=== PATIENT | male | born 1940 | race Hispanic/Latino ===

== ENCOUNTER 2018-03-23 11:48 | Inpatient (IN) | payer MEDICARE ==
[2018-03-23 12:02] VITALS: BMI 32.8
--- NOTE | 2018-03-23 12:27 | ED PDOC ---
Arrival/HPI - General Chief Complaint: Abnormal Labs Time Seen by Provider: 03/23/18 11:56 Historian: Patient - History of Present Illness Narrative History of Present Illness (Text): 03/23/18 12:18 Patient is a 77 year old male, with past medical history of hypertension and CAD s/p stent placement and pacemaker, was referred to the Emergency Department by Dr. Young for medical evaluation of possible blood transfusion s/p abnormal lab results today. Patient states visiting his PMD yesterday for a routine check up and was informed of abnormal lab results this morning prompting him to present to the ED for evaluation. Patient informs generalized weakness and fatigue since past 2 months but denies any other somatic complaints. As per son, patient has been acting more tired than his baseline with progressively increasi ngly skin paleness. Patient denies any abdominal pain, stool changes, or urinary symptoms. Denies any chest pain, shortness of breath, neck or back pain. Denies any headache, dizziness/lightheadedness or changes in mental status. Denies any other complaints. PMD: Dr. Young Time/Duration: > month Symptom Onset: Gradual Symptom Course: Unchanged Activities at Onset: Light Context: Other (Referred by PMD) Past Medical History - Provider Review Nursing Documentation Reviewed: Yes - Infectious Disease Hx of Infectious Diseases: None - Cardiac Hx Cardiac Disorders: Yes Hx NV: Yes Hx Hypertension: Yes Hx Pacemaker: Yes - Pulmonary Hx Respiratory Disorders: No - Neurological Hx Neurological Disorder: No - HEENT Hx HEENT Disorder: No - Renal Hx Renal Disorder: No - Endocrine/Metabolic Hx Endocrine Disorders: No - Hematological/Oncological Hx Blood Disorders: No - Integumentary Hx Dermatological Disorder: No - Musculoskeletal/Rheumatological Hx Musculoskeletal Disorders: Yes (radiculapathy) Hx Back Pain: Yes Hx Gout: Yes Hx Herniated Disk: Yes (lumbar) Hx Spinal Stenosis: Yes Hx Unsteady Gait: Yes (uses a cane back pain) - Gastrointestinal Hx Gastrointestinal Disorders: No - Genitourinary/Gynecological Hx Genitourinary Disorders: Yes Hx Prostate Problems: Yes (bph enlarged bw once a yr, slow stream) - Psychiatric Hx Psychophysiologic Disorder: No Hx Substance Use: No - Surgical History Hx Cardiac Catheterization: Yes Hx Coronary Stent: Yes (x 5) Other/Comment: femoral angiogram 8/13/15, cath/ptca x2 with 5 stents 2010 and 2012, left endarterectomy 2002, angiogram 06/08/14, abd wall lipoma - Anesthesia Hx Anesthesia Reactions: No Hx Malignant Hyperthermia: No - Suicidal Assessment Feels Threatened In Home Enviroment: No Family/Social History - Physician Review Nursing Documentation Reviewed: Yes Family/Social History: No Known Family HX Smoking Status: Former Smoker Hx Alcohol Use: Yes (occasional beer) Hx Substance Use: No Hx Substance Use Treatment: No Allergies/Home Meds Allergies/Adverse Reactions: Allergies clopidogrel [From Plavix] Allergy (Verified 03/23/18 14:21) RASH gabapentin Allergy (Verified 03/23/18 14:21) PAIN Sulfa (Sulfonamide Antibiotics) Allergy (Verified 03/23/18 14:21) RASH Home Medications: Home Meds Medication Instructions Recorded Confirmed Aspirin [Aspir 81] 81 mg PO DAILY 10/11/12 03/23/18 oxyCODONE/Acetaminophen [Percocet 1 tab PO Q6 PRN 11/15/13 03/23/18 5/325 mg Tab] Potassium 1 tab PO DAILY 06/06/14 03/23/18 Allopurinol [Zyloprim] 100 mg PO DAILY 03/23/18 03/23/18 Lisinopril 30 mg PO DAILY 03/23/18 03/23/18 Metoprolol Tartrate [Lopressor] 25 mg PO DAILY 03/23/18 03/23/18 Review of Systems - Review of Systems Constitutional: Fatigue. absent: Fevers Eyes: absent: Vision Changes ENT: absent: Sore Throat Respiratory: absent: SOB, Cough Cardiovascular: CORTEZ. absent: Chest Pain, Palpitations, Edema, Calf Pain Gastrointestinal: absent: Abdominal Pain, Stool Changes, Diarrhea, Nausea, Vomiting, Appetite Changes, Hematochezia, Hematemesis Genitourinary Male: absent: Dysuria, Hematuria Musculoskeletal: Arthralgias. absent: Back Pain, Neck Pain Skin: absent: Rash Neurological: absent: Headache, Dizziness, Focal Weakness Endocrine: absent: Polyuria Hemo/Lymphatic: Easy Bleeding. absent: Easy Bruising Psychiatric: absent: Anxiety, Depression Physical Exam - Physical Exam Narrative Physical Exam (Text): 03/23/18 12:28 Head: Atraumatic. Normocephalic. Eyes: PERRL. EOMI. Conjunctivae are pale. Sclera anicteric. ENT: Mucous membranes are moist and intact. Oropharynx is clear and symmetric. Neck: Supple. Full ROM. No JVD. No lymphadenopathy. Cardiovascular: Regular rate. Regular rhythm. Systolic murmur. Distal pulses are 2+ and symmetric. Pulmonary/Chest: No evidence of respiratory distress. Clear to auscultation bilaterally. No wheezing, rales or rhonchi. Abdominal: Soft and non-distended. There is no tenderness. No rebound, guardi ng, or rigidity. No organomegaly. Good bowel sounds. Rectal: external hemorrhoid noted, nontender, stool is brown, HEME NEGATIVE Back: No CVA tenderness. Extremities: No edema. No cyanosis. No clubbing. Skin: Pale skin. Skin is warm and dry. No petechiae. No purpura. Neurological: Alert, awake, and oriented. Motor and sensory exam intact. Psychiatric: Good eye contact. Normal interaction, affect, and behavior. Vital Signs Reviewed: Yes Vital Signs Temp Pulse Resp BP Pulse Ox 03/23/18 12:02 98.0 F 66 18 172/70 H 98 Temperature: Afebrile Blood Pressure: Hypertensive Pulse: Regular Respiratory Rate: Normal Appearance: Positive for: Non-Toxic, Comfortable Pain Distress: None Mental Status: Positive for: Alert and Oriented X 3 Medical Decision Making ED Course and Treatment: 03/23/18 12:29 Impression: 77 year old male presents to the Emergency Department for evaluation of anemia. History supplemented by son at bedside. He reports that patient has been weaker for past several months. On exam, no headache, no focal neuro deficits. Not tachycardic. Not hypotensive. Rectal exam reveals no melena, no gross bleeding. Significant anemia noted. He denies any new medication or blood thinners. No abdominal pain noted. K elevated at 5.4 but no EKG changes. Cr mildly elevated. Will admit to onitored bed, hydrate. Blood transfusion ordered as Hgb 6.1. Consent obtained with patient, risks/benefits reviewed. Patient seen and evaluted by PMD Dr. Silva Young in ED, will admit for transfusion, work up for anemia. Currently no abdominal pain and cv stable in ed. 03/23/18 20:13 CXR reading by radiology noted, follow-up endorsed to admitting physician as patient currently with no chest pain or shortness of breath or hypoxia in ED. - RAD Interpretation Narrative RAD Interpretations (Text): 03/23/18 15:41 Chest X-ray reviewed by radiologist, shows: FINDINGS: LUNGS: No active pulmonary disease. PLEURA: No significant pleural effusion identified, no pneumothorax apparent. CARDIOVASCULAR: No atherosclerotic calcification present Position/ configuration of pacemaker\AICD device: Satisfactory. OSSEOUS STRUCTURES: No significant abnormalities. VISUALIZED UPPER ABDOMEN: Normal. OTHER FINDINGS: Hilar prominence on the right appears to be technical/vascular. Repeat two-view chest may better clarify this observation. IMPRESSION: No active disease. No significant interval change compared to the prior examination(s). Signing Teacher: Radiologist - EKG Interpretation EKG Interpretation (Text): 03/23/18 20:09 EKG at 1219 normal sinus rhythm rate of [address] elevations Interpreted by ED Physician: Yes Type: 12 lead EKG - Scribe Statement The provider has reviewed the documentation as recorded by the Scribe Neyda Park. All medical record entries made by the Scribe were at my direction and personally dictated by me. I have reviewed the chart and agree that the record accurately reflects my personal performance of the history, physical exam, medical decision making, and the department course for this patient. I have also personally directed, reviewed, and agree with the discharge instructions and disposition. Disposition/Present on Arrival - Present on Arrival Any Indicators Present on Arrival: No History of DVT/PE: No History of Uncontrolled Diabetes: No Urinary Catheter: No History of Decub. Ulcer: No History Surgical Site Infection Following: None - Disposition Have Diagnosis and Disposition been Completed?: Yes Diagnosis: Anemia, Renal insufficiency Disposition: HOSPITALIZED Disposition Time: 13:40 Patient Plan: Admission Patient Problems: Current Active Problems Problem Status Onset Anemia Acute Renal insufficiency Acute Condition: SERIOUS
[2018-03-23 13:30] LABS: BASO # 0.03 K/mm3 (0.0-2.0); BASO % 0.3 % (0.0-3.0); EOS # 0.2 (0.0-0.7); EOS % 2.2 % (1.5-5.0); GRAN # 7.56 (1.4-6.5); GRAN % 77.6 % (50.0-68.0); LYMPH # 1.1 (1.2-3.4); LYMPH % 11.5 % (22.0-35.0); MEAN CELL VOLUME 77.9 fl (80.0-105.0); MEAN CORPUSCULAR HEMOGLOBIN 22.5 pg (25.0-35.0); MEAN CORPUSCULAR HGB CONC 28.9 g/dl (31.0-37.0); MONO # 0.8 (0.1-0.6); MONO % 8.4 % (1.0-6.0); RBC 2.71 10^6/uL (3.5-6.1); RED CELL DISTRIBUTION WIDTH 17.7 % (11.5-14.5); WHITE BLOOD COUNT 9.7 10^3/ul (4.5-11.0)
[2018-03-23 13:33] LABS: INR 1.09; PARTIAL THROMBOPLASTIN TIME 23.4 Seconds (25.1-36.5); PROTHROMBIN TIME 12.5 SECONDS (9.4-12.5)
[2018-03-23 13:35] LABS: ALB/GLOB RATIO 1.3 (1.1-1.8); ALBUMIN 3.8 g/dL (3.0-4.8); ALT/SGPT 16 U/L (7-56); AST/SGOT 25 U/L (17-59); BLOOD UREA NITROGEN 36 mg/dL (7-21); CALCIUM 9.3 mg/dL (8.4-10.5); GFR NON-AFRICAN AMERICAN 37; HEMOGLOBIN 6.1 g/dL (14.0-18.0)
[2018-03-23 13:46] LABS: B-TYPE NATRIURETIC PEPTIDE 109 pg/mL (0-450); TROPONIN I < 0.01 ng/mL
[2018-03-23 13:54] LABS: IRON 24 ug/dL (45-180)
[2018-03-23] MEDS ORDERED: Sodium Chloride 0.9% 1,000 ML IV SCH (14:00)
[2018-03-23 14:03] LABS: % IRON SATURATION 6 % (20-55); TOTAL IRON BINDING CAPACITY 378 ug/dL (261-462)
--- NOTE | 2018-03-23 15:11 | CARD ---
APPROVED REPORT Date of service: 03/23/2018 EKG Measurement Heart [id number] <Conclusion> Normal sinus rhythm Normal ECG
--- NOTE | 2018-03-23 15:39 | RAD ---
Date of service: 03/23/2018 HISTORY: Shortness of breath. COMPARISON: 01/29/2015. FINDINGS: LUNGS: No active pulmonary disease. PLEURA: No significant pleural effusion identified, no pneumothorax apparent. CARDIOVASCULAR: No atherosclerotic calcification present Position/ configuration of pacemaker OSSEOUS STRUCTURES: No significant abnormalities. VISUALIZED UPPER ABDOMEN: Normal. OTHER FINDINGS: Hilar prominence on the right appears to be technical/vascular. Repeat two-view chest may better clarify this observation. IMPRESSION: No active disease. No significant interval change compared to the prior examination(s).
[2018-03-23 16:20] LABS: FERRITIN 5.9 ng/mL
[2018-03-23 17:19] LABS: FOLATE 6.9 ng/mL
[2018-03-23] MEDS ORDERED: Potassium Chloride 10 mEq ER Tab PO SCH (18:00)
[2018-03-23] MEDS ORDERED: Influenza Vaccine 60 mcg/0.5 mL SYR (4YR UP) IM ONE (18:06)
[2018-03-23] MEDS: oxyCODONE 10 mg Immediate Release Tab PO PRN (20:13)
[2018-03-24 06:34] LABS: BASO # 0.02 K/mm3 (0.0-2.0); BASO % 0.2 % (0.0-3.0); EOS # 0.4 (0.0-0.7); EOS % 3.8 % (1.5-5.0); GRAN # 6.7 (1.4-6.5); GRAN % 69.7 % (50.0-68.0); HEMOGLOBIN 7.4 g/dL (14.0-18.0); LYMPH # 1.6 (1.2-3.4); MEAN CELL VOLUME 80.3 fl (80.0-105.0); MEAN CORPUSCULAR HEMOGLOBIN 23.9 pg (25.0-35.0); MEAN CORPUSCULAR HGB CONC 29.8 g/dl (31.0-37.0); MEAN PLATELET VOLUME 9.5 fl (7.0-11.0); MONO # 0.9 (0.1-0.6); MONO % 9.3 % (1.0-6.0); RBC 3.09 10^6/uL (3.5-6.1); WHITE BLOOD COUNT 9.6 10^3/ul (4.5-11.0)
[2018-03-24 06:50] LABS: CALCIUM 8.9 mg/dL (8.4-10.5)
--- NOTE | 2018-03-24 07:56 | HP ---
DATE OF EXAM: 03/23/2018 CHIEF COMPLAINT: Anemia, hemoglobin of 6.1. HISTORY OF PRESENT ILLNESS: This is a [id number] who was seen in the office yesterday complaining of 2 weeks of just not feeling well, generalized weakness, malaise, sleepiness, he states he can fall asleep in the waiting room or almost anywhere. He denies chest pain, shortness of breath, hemoptysis, melena or abdominal pain. Labs were drawn yesterday. Today, the report was received that his hemoglobin was 6.1. The patient was contacted and sent to the emergency room. Detailed history with questions leading to anemia were asked to the patient with negative answers. He denied chest pain, nausea, palpitations or diaphoresis. He denied hemoptysis, hematuria, melena, dark tarry stool. PAST MEDICAL HISTORY: Significant for hypertension in 1982, hyperlipidemia, COPD, episode of gout in 2009. He had a TIA in 2002. He has elevated cholesterol and triglycerides. He has coronary artery disease with stent placed in 2009 and 2012 and a permanent pacemaker placed in 2012. He has spinal stenosis as seen on CAT scans and MRIs in 1996, 1999, 2004 and 2010. PAST SURGICAL HISTORY: Significant for carotid endarterectomy on the left side in 07/2002, multiple epidurals in 2005 and 2012. Cardiac catheterization and stent placement in 04/2010 and 12/2014 and pacemaker placement in 09/2012. He had a stent placement his right femoral artery in 12/2014 and he had a GI bleed for which he was hospitalized in 01/2015 with most likely source of his bleeding is being diverticulosis, although colon polyp and duodenitis were seen in workup. ALLERGIES: THE PATIENT IS ALLERGIC TO SULFA, WHICH GIVES HIM HIVES, STATINS CAUSES LEG CRAMPS, HYDROCHLOROTHIAZIDE CAUSES LEG CRAMPS DOES LEVAQUIN. SOCIAL HISTORY: Tobacco; he still smokes a few cigarettes on and off, he quit several times, most recent one being in 2016. Alcohol; he has few beers every day. He does not drink coffee, but drinks tea. He had colonoscopy in 2006 and 2014 and endoscopy in 2014 and stress test in 2005, 2013 and 05/2016. He usually gets the flu shot. His last Pneumovax vaccine was in 2008. FAMILY HISTORY: His mother at age 96, his father at age 79. He is the youngest of 2 sibs with the brother who is in good health. He is a , his passed in 07/2012. He has 3 children, Wes, Gilmar, and . He is a retired painter sign maintenance since 2002 with 6 grandchildren, after group home in 2002 he worked for the [employer] office, the [employer] for [address] Goodwin is his stock car driver whom he sees a few times a year. PHYSICAL EXAMINATION: GENERAL: The patient was seen in the emergency room, slot #7 with his son, Gilmar at the bedside. He is awake, alert, clear, in good spirits although a bit pale. HEENT: Head and neck, otherwise unremarkable. Conjunctivae are pale. Mucous membranes are moist. LUNGS: Show good aeration. HEART: Regular, not tachycardiac. ABDOMEN: Soft and nontender. EXTREMITIES: Show no edema. IMPRESSION: 1. Severe anemia in a 77-year-old man with a history of gastrointestinal bleed and diverticula. 2. Coronary artery disease. 3. Severe spinal stenosis. 4. Hyperlipidemia. 5. Chronic obstructive pulmonary disease. 6. Gout. 7. Hypertension. 8. Chronic low back pain. 9. Chronic opioid use. 10. Peripheral artery disease with right femoral artery stent. 11. Status post gastrointestinal bleed in 2014 from diverticula. PLAN: The patient will be admitted to the medical floor as he is hemodynamically stable and obviously his anemia of 6.1 was slow in onset and rather longstanding. He was transfusing 2 units of packed red cells today. We will check his labs in the morning. I will notify his stock car driver Dr. Goodwin about his admission. The patient and son also requested Dr. Roman for GI consultation. We will add proton pump inhibitor to his prior medications, allow him to eat today, probably n.p.o. tomorrow for the procedures that will be on decision of GI. Morning labs are ordered. I will follow closely. Cole Young MD [facility]
[2018-03-24] MEDS: Pantoprazole 40 mg EC Tab PO SCH (10:33)
--- NOTE | 2018-03-24 10:58 | CP.PCM.CON ---
<Adán Dockery - Last Filed: 03/24/18 10:52> History of Present Illness - History of Present Illness History of Present Illness: GI Fellow PGY4, consult note. Gilmar Dennison is a very pleasant 77M and hx of CAD s/p stents, pacemaker, PAD and diverticular bleed presenting with anemia. Patient reports he was sent to the hospital after outpatient blood work showed significant anemia, Hb of 6.1. Patient states he had blood work done for fatigue and generalized weakness. He denies any recent bleeding, black stool, vomiting, abdominal pain or weight loss. His last BM was brown. He was hemodynamically stable, started on PPI and given blood transfusion upon admission. Patient had EGD and colonoscopy in 2014 for an acute episode of BRBPR. There was mild duodenitis on EGD and diverticulosis on colonoscopy. There was no obvious area of bleeding and presumed to be a diverticular bleed. He was on aspirin and plavix at that time for recent stent. He is NOW only taking aspirin. Otherwise no blood thinners. He denies blood in urine. PMHx - as above as well as HTN, chronic back pain which he takes opiates and tylenol. He denies taking much NSAIDs. PSHx - Carotid endarterectomy, PPM FMHx - Denies GI related cancers SocHx - lives at home, uses walker. Denies current alcohol and smoking 12pt ROS completed and negative except for above. Past Patient History - Infectious Disease Hx of Infectious Diseases: None - Past Social History Smoking Status: Former Smoker - CARDIAC Hx Cardiac Disorders: Yes Hx Heart Attack: Yes Hx Hypertension: Yes Hx Pacemaker: Yes - PULMONARY Hx Respiratory Disorders: No - NEUROLOGICAL Hx Neurological Disorder: No - HEENT Hx HEENT Problems: No - RENAL Hx Chronic Kidney Disease: No - ENDOCRINE/METABOLIC Hx Endocrine Disorders: No - HEMATOLOGICAL/ONCOLOGICAL Hx Blood Disorders: No - INTEGUMENTARY Hx Dermatological Problems: No - MUSCULOSKELETAL/RHEUMATOLOGICAL Hx Musculoskeletal Disorders: Yes (radiculapathy) Hx Back Pain: Yes Hx Gout: Yes Hx Herniated Disk: Yes (lumbar) Hx Spinal Stenosis: Yes Hx Unsteady Gait: Yes (uses a cane back pain) - GASTROINTESTINAL Hx Gastrointestinal Disorders: No - GENITOURINARY/GYNECOLOGICAL Hx Genitourinary Disorders: Yes Hx Prostate Problems: Yes (bph enlarged bw once a yr, slow stream) - PSYCHIATRIC Hx Psychophysiologic Disorder: No Hx Substance Use: No - SURGICAL HISTORY Hx Cardiac Catheterization: Yes Hx Coronary Stent: Yes (x 5) Other/Comment: femoral angiogram 01/11/15, cath/ptca x2 with 5 stents 2010 and 2012, left endarterectomy 2002, angiogram 06/08/14, abd wall lipoma - ANESTHESIA Hx Anesthesia Reactions: No Hx Malignant Hyperthermia: No Meds Allergies/Adverse Reactions: Allergies Allergy/AdvReac Type Severity Reaction Status Date / Time clopidogrel [From Plavix] Allergy RASH Verified 03/23/18 14:21 gabapentin Allergy PAIN Verified 03/23/18 14:21 Sulfa (Sulfonamide Allergy RASH Verified 03/23/18 14:21 Antibiotics) - Medications Medications: Current Medications Allopurinol (Zyloprim) 300 mg PO DAILY [facility] Last Admin: 03/24/18 10:33 Dose: 300 mg Alprazolam (Xanax) 0.25 mg PO Q6H PRN PRN Reason: Anxiety Stop: 03/30/18 17:44 Last Admin: 03/23/18 23:48 Dose: 0.25 mg Aspirin (Ecotrin) 81 mg PO DAILY [facility] Last Admin: 03/24/18 10:33 Dose: 81 mg Docusate Sodium (Colace) 100 mg PO DAILY [facility] Last Admin: 03/24/18 10:32 Dose: 100 mg Furosemide (Lasix) 40 mg IV ONCE ONE Stop: 03/24/18 13:01 Lisinopril (Zestril) 20 mg PO DAILY [facility] Last Admin: 03/24/18 10:34 Dose: 20 mg Metoprolol Tartrate (Lopressor) 25 mg PO BRKDIN [facility] Last Admin: 03/24/18 10:32 Dose: 25 mg Oxycodone HCl (Oxycodone Immediate Release Tab) 10 mg PO Q6H PRN PRN Reason: Pain, moderate (4-7) Last Admin: 03/23/18 20:13 Dose: 10 mg Pantoprazole Sodium (Protonix Ec Tab) 40 mg PO DAILY [facility] Last Admin: 03/24/18 10:33 Dose: 40 mg Physical Exam - Constitutional Appears: Non-toxic, No Acute Distress - Head Exam Head Exam: ATRAUMATIC, NORMAL INSPECTION - Eye Exam Eye Exam: EOMI, Normal appearance - ENT Exam ENT Exam: Mucous Membranes Moist, Normal Exam - Respiratory Exam Respiratory Exam: Clear to Auscultation Bilateral, NORMAL BREATHING PATTERN. absent: Respiratory Distress - Cardiovascular Exam Cardiovascular Exam: REGULAR RHYTHM, +S1, +S2 - GI/Abdominal Exam GI & Abdominal Exam: Normal Bowel Sounds, Soft. absent: Organomegaly, Tenderness - Rectal Exam Rectal Exam: Deferred - Extremities Exam Extremities exam: Positive for: normal inspection. Negative for: tenderness - Neurological Exam Neurological exam: Alert, CN II-XII Intact, Oriented x3 - Psychiatric Exam Psychiatric exam: Normal Affect, Normal Mood - Skin Skin Exam: Dry, Normal Color Results - Vital Signs Recent Vital Signs: Last Vital Signs Temp 98.2 F 03/24/18 06:00 Pulse 85 03/24/18 10:34 Resp 19 03/24/18 06:00 BP 154/86 H 03/24/18 10:34 Pulse Ox 97 03/24/18 06:00 - Labs Result Diagrams: 03/24/18 06:00 03/24/18 06:00 Labs: Laboratory Results - last 24 hr 03/23/18 03/23/18 03/23/18 13:00 13:00 13:00 WBC RBC Hgb Hct MCV MCH MCHC RDW Plt Count MPV Gran % Lymph % (Auto) Jefferson % (Auto) Eos % (Auto) Baso % (Auto) Gran # Lymph # (Auto) Jefferson # (Auto) Eos # (Auto) Baso # (Auto) Retic Count 2.12 H PT INR APTT Sodium Potassium Chloride Carbon Dioxide Anion Gap BUN Creatinine Est GFR ( Amer) Est GFR (Non-Af Amer) Random Glucose Calcium Phosphorus Magnesium Iron 24 L TIBC 378 % Saturation 6 L Ferritin 5.9 Total Bilirubin AST ALT Alkaline Phosphatase Lactate Dehydrogenase Total Creatine Kinase Troponin I NT-Pro-B Natriuret Pep Total Protein Albumin Globulin Albumin/Globulin Ratio Triglycerides Cholesterol LDL Cholesterol Direct HDL Cholesterol Folate 6.9 TSH 3rd Generation Blood Type Antibody Screen Crossmatch BBK History Checked 03/23/18 03/23/18 03/23/18 13:15 13:15 13:15 WBC 9.7 RBC 2.71 L Hgb 6.1 L* Hct 21.1 L MCV 77.9 L MCH 22.5 L MCHC 28.9 L RDW 17.7 H Plt Count 264 MPV 10.0 Gran % 77.6 H Lymph % (Auto) 11.5 L Jefferson % (Auto) 8.4 H Eos % (Auto) 2.2 Baso % (Auto) 0.3 Gran # 7.56 H Lymph # (Auto) 1.1 L Jefferson # (Auto) 0.8 H Eos # (Auto) 0.2 Baso # (Auto) 0.03 Retic Count PT 12.5 INR 1.09 APTT 23.4 L Sodium 140 Potassium 5.4 H Chloride 108 H Carbon Dioxide 22 Anion Gap 16 BUN 36 H Creatinine 1.8 H Est GFR ( Amer) 45 Est GFR (Non-Af Amer) 37 Random Glucose 107 Calcium 9.3 Phosphorus Magnesium 1.9 Iron TIBC % Saturation Ferritin Total Bilirubin 0.2 AST 25 ALT 16 Alkaline Phosphatase 102 Lactate Dehydrogenase 346 Total Creatine Kinase 44 Troponin I < 0.01 NT-Pro-B Natriuret Pep 109 Total Protein 6.7 Albumin 3.8 Globulin 2.8 Albumin/Globulin Ratio 1.3 Triglycerides Cholesterol LDL Cholesterol Direct HDL Cholesterol Folate TSH 3rd Generation Blood Type Antibody Screen Crossmatch BBK History Checked 03/23/18 03/23/18 03/24/18 13:15 13:15 06:00 WBC 9.6 RBC 3.09 L Hgb 7.4 L Hct 24.8 L MCV 80.3 MCH 23.9 L MCHC 29.8 L RDW 18.0 H Plt Count 222 MPV 9.5 Gran % 69.7 H Lymph % (Auto) 17.0 L Jefferson % (Auto) 9.3 H Eos % (Auto) 3.8 Baso % (Auto) 0.2 Gran # 6.70 H Lymph # (Auto) 1.6 Jefferson # (Auto) 0.9 H Eos # (Auto) 0.4 Baso # (Auto) 0.02 Retic Count PT INR APTT Sodium Potassium Chloride Carbon Dioxide Anion Gap BUN Creatinine Est GFR ( Amer) Est GFR (Non-Af Amer) Random Glucose Calcium Phosphorus Magnesium Iron TIBC % Saturation Ferritin Total Bilirubin AST ALT Alkaline Phosphatase Lactate Dehydrogenase Total Creatine Kinase Troponin I NT-Pro-B Natriuret Pep Total Protein Albumin Globulin Albumin/Globulin Ratio Triglycerides Cholesterol LDL Cholesterol Direct HDL Cholesterol Folate TSH 3rd Generation Blood Type Cancelled O POSITIVE Antibody Screen Cancelled Negative Crossmatch See Detail BBK History Checked Cancelled Patient has bt 03/24/18 03/24/18 03/24/18 06:00 06:00 06:00 WBC RBC Hgb Hct MCV MCH MCHC RDW Plt Count MPV Gran % Lymph % (Auto) Jefferson % (Auto) Eos % (Auto) Baso % (Auto) Gran # Lymph # (Auto) Jefferson # (Auto) Eos # (Auto) Baso # (Auto) Retic Count PT INR APTT Sodium 139 Potassium 4.6 Chloride 109 H Carbon Dioxide 23 Anion Gap 12 BUN 31 H Creatinine 1.6 H Est GFR ( Amer) 51 Est GFR (Non-Af Amer) 42 Random Glucose 103 Calcium 8.9 Phosphorus 3.6 Magnesium 1.8 Iron TIBC % Saturation Ferritin Total Bilirubin AST ALT Alkaline Phosphatase Lactate Dehydrogenase Total Creatine Kinase Troponin I NT-Pro-B Natriuret Pep Total Protein Albumin Globulin Albumin/Globulin Ratio Triglycerides 160 Cholesterol 138 LDL Cholesterol Direct 93 HDL Cholesterol 22 L Folate TSH 3rd Generation 1.50 Blood Type Antibody Screen Crossmatch BBK History Checked Assessment & Plan - Assessment and Plan (Free Text) Assessment: #Symptomatic anemia #Iron deficiency anemia #Hx of diverticulosis with presumed diverticular bleed 2014 #CAD/PAD w/ stents #Chronic back pain on opiate/tylenol #HTN PLAN: -No signs of active bleeding -s/p 1u pRBCs. Further transfusion pending Hb response. May benefit from Iron infusion. -Clearly iron deficient, presumed blood loss from GI. Will obtain UA to r/o problem. -EGD today -Plan for Colonoscopy pending findings and clinical course. -Hold NSAID, anticoagulation -PPI PO daily - Date & Time Date: 03/24/18 Time: 11:07 <Freeman Roman - Last Filed: 03/24/18 18:29> Meds - Medications Medications: Current Medications Allopurinol (Zyloprim) 300 mg PO DAILY [facility] Last Admin: 03/24/18 10:33 Dose: 300 mg Alprazolam (Xanax) 0.25 mg PO Q6H PRN PRN Reason: Anxiety Stop: 03/30/18 17:44 Last Admin: 03/23/18 23:48 Dose: 0.25 mg Aspirin (Ecotrin) 81 mg PO DAILY [facility] Last Admin: 03/24/18 10:33 Dose: 81 mg Docusate Sodium (Colace) 100 mg PO DAILY [facility] Last Admin: 03/24/18 10:32 Dose: 100 mg Lisinopril (Zestril) 20 mg PO DAILY [facility] Last Admin: 03/24/18 10:34 Dose: 20 mg Metoprolol Tartrate (Lopressor) 25 mg PO BRKDIN [facility] Last Admin: 03/24/18 17:29 Dose: 25 mg Oxycodone HCl (Oxycodone Immediate Release Tab) 10 mg PO Q6H PRN PRN Reason: Pain, moderate (4-7) Last Admin: 03/23/18 20:13 Dose: 10 mg Pantoprazole Sodium (Protonix Ec Tab) 40 mg PO DAILY [facility] Last Admin: 03/24/18 10:33 Dose: 40 mg Results - Vital Signs Recent Vital Signs: Last Vital Signs Temp 98.1 F 03/24/18 14:50 Pulse 65 03/24/18 17:29 Resp 18 03/24/18 14:50 BP 159/61 H 03/24/18 17:29 Pulse Ox 99 03/24/18 14:50 - Labs Result Diagrams: 03/24/18 06:00 03/24/18 06:00 Labs: Laboratory Results - last 24 hr 03/23/18 03/24/18 03/24/18 13:15 06:00 06:00 WBC 9.6 RBC 3.09 L Hgb 7.4 L Hct 24.8 L MCV 80.3 MCH 23.9 L MCHC 29.8 L RDW 18.0 H Plt Count 222 MPV 9.5 Gran % 69.7 H Lymph % (Auto) 17.0 L Jefferson % (Auto) 9.3 H Eos % (Auto) 3.8 Baso % (Auto) 0.2 Gran # 6.70 H Lymph # (Auto) 1.6 Jefferson # (Auto) 0.9 H Eos # (Auto) 0.4 Baso # (Auto) 0.02 Sodium 139 Potassium 4.6 Chloride 109 H Carbon Dioxide 23 Anion Gap 12 BUN 31 H Creatinine 1.6 H Est GFR ( Amer) 51 Est GFR (Non-Af Amer) 42 Random Glucose 103 Hemoglobin A1c Calcium 8.9 Phosphorus Magnesium Triglycerides Cholesterol LDL Cholesterol Direct HDL Cholesterol TSH 3rd Generation Urine Color Urine Appearance Urine pH Ur Specific [place] Urine Protein Urine Glucose (UA) Urine Ketones Urine Blood Urine Nitrate Urine Bilirubin Urine Urobilinogen Ur Leukocyte Esterase Blood Type O POSITIVE Antibody Screen Negative Crossmatch See Detail BBK History Checked Patient has bt 10/24/18 10/24/18 10/24/18 06:00 06:00 06:00 WBC RBC Hgb Hct MCV MCH MCHC RDW Plt Count MPV Gran % Lymph % (Auto) Jefferson % (Auto) Eos % (Auto) Baso % (Auto) Gran # Lymph # (Auto) Jefferson # (Auto) Eos # (Auto) Baso # (Auto) Sodium Potassium Chloride Carbon Dioxide Anion Gap BUN Creatinine Est GFR ( Amer) Est GFR (Non-Af Amer) Random Glucose Hemoglobin A1c 5.9 Calcium Phosphorus 3.6 Magnesium 1.8 Triglycerides 160 Cholesterol 138 LDL Cholesterol Direct 93 HDL Cholesterol 22 L TSH 3rd Generation 1.50 Urine Color Urine Appearance Urine pH Ur Specific [place] Urine Protein Urine Glucose (UA) Urine Ketones Urine Blood Urine Nitrate Urine Bilirubin Urine Urobilinogen Ur Leukocyte Esterase Blood Type Antibody Screen Crossmatch BBK History Checked 03/24/18 12:20 WBC RBC Hgb Hct MCV MCH MCHC RDW Plt Count MPV Gran % Lymph % (Auto) Jefferson % (Auto) Eos % (Auto) Baso % (Auto) Gran # Lymph # (Auto) Jefferson # (Auto) Eos # (Auto) Baso # (Auto) Sodium Potassium Chloride Carbon Dioxide Anion Gap BUN Creatinine Est GFR ( Amer) Est GFR (Non-Af Amer) Random Glucose Hemoglobin A1c Calcium Phosphorus Magnesium Triglycerides Cholesterol LDL Cholesterol Direct HDL Cholesterol TSH 3rd Generation Urine Color Yellow Urine Appearance Clear Urine pH 5.5 Ur Specific [place] 1.010 Urine Protein Negative Urine Glucose (UA) Negative Urine Ketones Negative Urine Blood Negative Urine Nitrate Negative Urine Bilirubin Negative Urine Urobilinogen 0.2 Ur Leukocyte Esterase Negative Blood Type Antibody Screen Crossmatch BBK History Checked Attending/Attestation - Attestation I have personally seen and examined this patient.: Yes I have fully participated in the care of the patient.: Yes I have reviewed all pertinent clinical information: Yes Notes (Text): 03/24/18 18:23 I have seen and examined patient with GI fellow. Agree with above documentation with the following additions. In brief, this is a 77 year old male with history of CAD s/p stent, PPM, PVD who presents to hospital with complaint of progressive fatigue. He was noted to have significant anemia on outpatient blood testing and was sent to hospital for further evaluation. He otherwise denies abdominal pain, nausea, vomiting, diarrhea, fever/chills, weight loss, melena, or rectal bleeding. He had prior EGD/colonoscopy in 2014 which showed duodenitis, gastritis, and diverticulosis though there was no evidence of active bleeding noted at that time. CAD PVD COPD HTN Iron deficiency anemia of unclear etiology - NPO - Continue to monitor H/H, s/p PRBC transfusion - Plan for EGD today given ongoing unexplained iron deficiency anemia - Suggest hematology consultation along with hemolytic workup - If inpatient workup is negative, patient would likely benefit from outpatient elective capsule endoscopy for small bowel evaluation - Will continue to monitor patient clinical course
--- NOTE | 2018-03-24 11:38 | US ---
PROCEDURE: Bilateral carotid artery duplex ultrasound HISTORY: Carotid stenosis PHYSICIAN(S): Harsha Hernandez MD. TECHNIQUE: Duplex sonography and color-flow Doppler were used to evaluate the carotid bifurcations and limited segments of the vertebral arteries bilaterally. FINDINGS: There is extensive heterogeneous echogenic plaque noted at the carotid bifurcations bilaterally. The peak systolic velocity in the proximal right internal carotid artery is 210 cm/sec. This corresponds to a 60-79 percent proximal right ICA stenosis. Severely elevated systolic velocities are noted in the proximal right external carotid artery. There is blunted antegrade flow in the small right vertebral artery. The peak systolic velocity in the proximal left internal carotid artery is 303 cm/sec. The end-diastolic velocity at this location is 68 cm/second. This corresponds to a 80-99 percent proximal left ICA stenosis. Normal systolic velocities are noted in the proximal left external carotid artery. The left vertebral artery is not clearly identified and may be occluded. IMPRESSION: 1. 80 percent proximal left ICA stenosis. 2. 60-79 percent proximal right ICA stenosis. 3. Blunted antegrade flow in the small right vertebral artery. The left vertebral artery is not clearly identified. There could be significant vertebral basilar disease. 4. Further imaging with an MRA with gadolinium evaluation or CTA can be obtained if clinically indicated
[2018-03-24 12:42] LABS: PH,URINE 5.5 (4.7-8.0); URINE BILIRUBIN NEGATIVE (NEGATIVE); URINE BLOOD NEGATIVE (NEGATIVE); URINE GLUCOSE (UA) NEGATIVE (NEGATIVE); URINE LEUKOCYTE ESTERASE NEGATIVE Leu/uL (NEGATIVE); URINE PROTEIN NEGATIVE mg/dL (<30 mg/dL); URINE UROBILINOGEN 0.2 E.U./dL (<1 E.U./dL)
[2018-03-24 12:47] LABS: URINE APPEARANCE CLEAR (CLEAR); URINE COLOR YELLOW (YELLOW)
[2018-03-24] MEDS ORDERED: Propofol 10 mg/ml Inj (20 ML) ONE (12:52)
[2018-03-24] MEDS ORDERED: Midazolam 2 MG/2 ML VIAL ONE (12:52)
[2018-03-24] MEDS ORDERED: Etomidate 20 mg/10ml Inj IV ONE (12:53)
[2018-03-24] MEDS ORDERED: Sodium Chloride 0.9% 1,000 ML IV SCH (13:15)
[2018-03-24 15:29] VITALS: RESP 18; O2SAT 99
[2018-03-24] MEDS: oxyCODONE 10 mg Immediate Release Tab PO PRN (21:12)
[2018-03-24 23:16] VITALS: PULSE 60
[2018-03-25 02:31] VITALS: TEMP 98.6
--- NOTE | 2018-03-25 05:29 | CON ---
DATE: 03/24/2018 REASON FOR CONSULTATION: Admitted with severe anemia, rule out GI bleed, history of coronary artery disease, peripheral artery disease, history of pacemaker, history of angioplasty, and cardiac evaluation and followup. BRIEF CLINICAL HISTORY: This is a 77-year-old male with past medical history significant for coronary artery disease, status post PTCA x2 in 05/2010 and 09/2012, status post permanent pacemaker in 09/2012, and status post right SFA and distal popliteal trunk PTCA and left SFA in 12/2012, who was feeling very weak, went to Dr. Young's office. Hemoglobin was done and found to be around 6. So, I advised medical admission. PAST MEDICAL HISTORY: Significant for history of coronary artery disease, status post twice PTCA in 05/2010 and 09/2012, status post permanent pacemaker in 09/2014 when the patient had a long pause while the patient was in the hospital, history of SFA atherectomy of right and SFA left atherectomy with drug-coated balloon in 12/2014, history of GI bleed on 01/29/2015, was admitted with hemoglobin of 8.6. Recent cardiac workup as follows: The patient had a stress test on 05/15/2016 that revealed normal myocardial perfusion study, ejection fraction of 71% dated 05/15/2016. In comparison to last study on , no significant change noted. The patient refused further noninvasive workup including a stress test because of severe back ache and sciatica and lumbar radiculopathy. PAST SURGICAL HISTORY: Significant for carotid artery endarterectomy on left side in 07/2002, history of multiple epidurals in 2005 and 2012, history of multiple GI bleed in 12/2014 and now recently. SOCIAL HISTORY: Denies having history of alcohol abuse, quit smoking completely from 5 years, but before off and on. CURRENT MEDICATIONS: The patient at home was taking lisinopril, allopurinol, oxycodone, potassium, aspirin, and metoprolol tartrate 25 p.o. b.i.d. ALLERGIES: RASH WITH PLAVIX, GABAPENTIN GIVES RASH, AND SULFA MEDICATION GIVES ALSO RASH. HE WAS ON EFFIENT AFTER THE ANGIOPLASTY BECAUSE OF ALLERGY TO PLAVIX. REVIEW OF SYSTEMS: As per HPI. PHYSICAL EXAMINATION: VITAL SIGNS: Heart rate 62, blood pressure 142/59. HEENT: PERRLA. Extraocular muscles intact. NECK: Supple. No carotid bruits or thyromegaly. CHEST: Clear to auscultation. HEART: S1 and S2, regular. ABDOMEN: Soft. EXTREMITIES: Clubbing and cyanosis negative. LABORATORY DATA: WBC 9.6, hemoglobin 7.4, hematocrit 24.8, and platelet count 222. Chemistries show sodium 113, potassium 4.6, chloride 109, carbon dioxide 23, anion gap of 12, BUN 31, and creatinine 1.6. INR is 1.5. Today, hemoglobin 7.4, admitting hemoglobin 6.1, status post 2 units of packed RBCs. IMPRESSION: A 77-year-old male with past medical history significant for coronary artery disease, status post stent in 2011 and 2012, history of permanent pacemaker, history of severe peripheral artery disease, status post carotid artery endarterectomy, history of lumbar radiculopathy, status post multiple epidurals, admitted with gastrointestinal bleed. The second episode of gastrointestinal bleed was in 2014 when hemoglobin at admit was 8.5 and today on admitting was 6.5. The patient is stable. Last stress test was in 05/2016 two years ago, essentially normal myocardial perfusion study with preserved left ventricular function. Though, the patient complains of weakness and generalized, no expected chest complaint, no specific chest pain. Admitting hemoglobin 6, but the patient also denies any bright red blood per rectum or melena. RECOMMENDATIONS: Continue GI workup. We will get echo to assess LV function. The patient is already off Effient for more than a year ago. Hold the baby aspirin now. We will get echo to assess LV function, also interrogate the pacemaker because the patient's EKG had been normal sinus, but telemetry shows some spikes after the QRS complex. We will follow with you. Thank you Dr. Young for providing us the opportunity in taking care of the patient, Gilmar Dennison. We will follow with you. Will get lipid profile, TSH, and hemoglobin A1c. Clark Goodwin MD
[2018-03-25 07:14] LABS: BASO # 0.03 K/mm3 (0.0-2.0); BASO % 0.3 % (0.0-3.0); EOS # 0.4 (0.0-0.7); EOS % 3.7 % (1.5-5.0); GRAN # 7.97 (1.4-6.5); GRAN % 69.3 % (50.0-68.0); HEMOGLOBIN 8.7 g/dL (14.0-18.0); LYMPH # 2.3 (1.2-3.4); LYMPH % 19.6 % (22.0-35.0); MEAN CELL VOLUME 80.4 fl (80.0-105.0); MEAN CORPUSCULAR HEMOGLOBIN 23.7 pg (25.0-35.0); MEAN CORPUSCULAR HGB CONC 29.5 g/dl (31.0-37.0); MEAN PLATELET VOLUME 10.1 fl (7.0-11.0); MONO # 0.8 (0.1-0.6); MONO % 7.1 % (1.0-6.0); RBC 3.67 10^6/uL (3.5-6.1); RED CELL DISTRIBUTION WIDTH 17.8 % (11.5-14.5); WHITE BLOOD COUNT 11.5 10^3/ul (4.5-11.0)
[2018-03-25 07:17] LABS: ALB/GLOB RATIO 1.3 (1.1-1.8); ALBUMIN 3.7 g/dL (3.0-4.8); CALCIUM 8.9 mg/dL (8.4-10.5)
--- NOTE | 2018-03-25 08:55 | CP.PCM.PN ---
Subjective - Date & Time of Evaluation Date of Evaluation: 03/25/18 Time of Evaluation: 06:40 - Subjective Subjective: Awake, alert, no distress Reason for consultation and follow up: Cardiac evaluation of coronary artery disease post stent and PPM, admitted for severe anemia Seen and examined by me and Dr. Goodwin Objective - Vital Signs/Intake and Output Vital Signs (last 24 hours): Temp Pulse Resp BP Pulse Ox 98.6 F 60 18 149/67 99 03/25/18 00:01 03/25/18 07:24 03/25/18 00:01 03/25/18 07:24 03/24/18 14:50 Intake and Output: 03/25/18 03/25/18 06:59 18:59 Intake Total 240 Output Total 800 Balance -560 - Medications Medications: Current Medications Allopurinol (Zyloprim) 300 mg PO DAILY [facility] Last Admin: 03/24/18 10:33 Dose: 300 mg Alprazolam (Xanax) 0.25 mg PO Q6H PRN PRN Reason: Anxiety Stop: 03/30/18 17:44 Last Admin: 03/23/18 23:48 Dose: 0.25 mg Aspirin (Ecotrin) 81 mg PO DAILY [facility] Last Admin: 03/24/18 10:33 Dose: 81 mg Docusate Sodium (Colace) 100 mg PO DAILY [facility] Last Admin: 03/24/18 10:32 Dose: 100 mg Lisinopril (Zestril) 20 mg PO DAILY [facility] Last Admin: 03/24/18 10:34 Dose: 20 mg Metoprolol Tartrate (Lopressor) 25 mg PO BRKDIN [facility] Last Admin: 03/25/18 07:24 Dose: 25 mg Oxycodone HCl (Oxycodone Immediate Release Tab) 10 mg PO Q6H PRN PRN Reason: Pain, moderate (4-7) Last Admin: 03/24/18 21:12 Dose: 10 mg Pantoprazole Sodium (Protonix Ec Tab) 40 mg PO DAILY [facility] Last Admin: 03/24/18 10:33 Dose: 40 mg - Labs Labs: 03/25/18 06:30 03/25/18 06:30 PT 12.5 SECONDS (9.4-12.5) 03/23/18 13:15 INR 1.09 03/23/18 13:15 APTT 23.4 Seconds (25.1-36.5) L 03/23/18 13:15 - Constitutional Appears: Non-toxic, No Acute Distress - Head Exam Head Exam: NORMAL INSPECTION, NORMOCEPHALIC - Eye Exam Eye Exam: Normal appearance Pupil Exam: NORMAL ACCOMODATION - ENT Exam ENT Exam: Mucous Membranes Dry, Normal Exam - Respiratory Exam Respiratory Exam: Clear to Ausculation Bilateral, NORMAL BREATHING PATTERN - Cardiovascular Exam Cardiovascular Exam: +S1, +S2 Additional comments: PPM, A-pacing 60's - GI/Abdominal Exam GI & Abdominal Exam: Soft, Normal Bowel Sounds - Extremities Exam Extremities Exam: Full ROM, Normal Capillary Refill - Neurological Exam Neurological Exam: Alert, Awake, Oriented x3 - Psychiatric Exam Psychiatric exam: Normal Affect, Normal Mood - Skin Skin Exam: Dry, Normal Color, Warm Assessment and Plan - Assessment and Plan (Free Text) Assessment: A 77 year old male who was sent to the ER by Dr. Young due to low hemoglobin (6.0) after a routine check up. History of coronary artery disease with stents in 05/2010 and 09/2012. PPM in 09/2012, status post right SFA and distal trunk PTCA and left SFA in 12/2012. history of hypertension, left carotid endarterectomy 07/2002, history of multiple epidurals due to severe back pain, sciatica, lumbar radiculopathy,history of GI bleed 12/2014. OFF Effient for more than 1 year now, just on ASA 81 mg per day, Held, Blood transfusion given. EGD done and showed gastric erosions. Will repeat echo. stable. Refused stress test from previous admissions due to back pain.Iron deficiency anemia. Plan: Echo today to evaluate LV function Denies chest pain and shortness of breath H/H stable 8.7/29.5 EGD showed gastric erosions GI work up in progress Continue to hold Aspirin OFF Effient for more than 1 year now Continue current treatment Continue current medications Cardiac status stable A- pacing telemetry Blood pressure controlled Chart reviewed Will follow up Plan and treatment discussed with Dr. Goodwin
--- NOTE | 2018-03-25 09:43 | CP.PCM.PN ---
Subjective - Date & Time of Evaluation Date of Evaluation: 03/25/18 Time of Evaluation: 08:00 - Subjective Subjective: PGY-4 GI Fellow Prog Note Pt lying in bed when seen this AM. States he feels well after blood transfusions. Reports normal BM for him that is sometimes small due to his chronic opiod use. 5 point ROS negative other than stated above Objective - Vital Signs/Intake and Output Vital Signs (last 24 hours): Temp Pulse Resp BP Pulse Ox 98.6 F 60 18 149/67 99 03/25/18 00:01 03/25/18 07:24 03/25/18 00:01 03/25/18 07:24 03/24/18 14:50 Intake and Output: 03/25/18 03/25/18 06:59 18:59 Intake Total 240 Output Total 800 Balance -560 - Medications Medications: Current Medications Allopurinol (Zyloprim) 300 mg PO DAILY [facility] Last Admin: 03/24/18 10:33 Dose: 300 mg Alprazolam (Xanax) 0.25 mg PO Q6H PRN PRN Reason: Anxiety Stop: 03/30/18 17:44 Last Admin: 03/23/18 23:48 Dose: 0.25 mg Aspirin (Ecotrin) 81 mg PO DAILY [facility] Last Admin: 03/24/18 10:33 Dose: 81 mg Docusate Sodium (Colace) 100 mg PO DAILY [facility] Last Admin: 03/24/18 10:32 Dose: 100 mg Lisinopril (Zestril) 20 mg PO DAILY [facility] Last Admin: 03/24/18 10:34 Dose: 20 mg Metoprolol Tartrate (Lopressor) 25 mg PO BRKDIN [facility] Last Admin: 03/25/18 07:24 Dose: 25 mg Oxycodone HCl (Oxycodone Immediate Release Tab) 10 mg PO Q6H PRN PRN Reason: Pain, moderate (4-7) Last Admin: 03/24/18 21:12 Dose: 10 mg Pantoprazole Sodium (Protonix Ec Tab) 40 mg PO DAILY [facility] Last Admin: 03/24/18 10:33 Dose: 40 mg - Labs Labs: 03/25/18 06:30 03/25/18 06:30 PT 12.5 SECONDS (9.4-12.5) 03/23/18 13:15 INR 1.09 03/23/18 13:15 APTT 23.4 Seconds (25.1-36.5) L 03/23/18 13:15 - Constitutional Appears: Well, Non-toxic, No Acute Distress - Head Exam Head Exam: ATRAUMATIC, NORMAL INSPECTION - Eye Exam Eye Exam: EOMI, Normal appearance. absent: Conjunctival injection, Scleral icterus - ENT Exam ENT Exam: Mucous Membranes Moist, Normal External Ear Exam. absent: Mucous Membranes Dry - Respiratory Exam Respiratory Exam: NORMAL BREATHING PATTERN. absent: Accessory Muscle Use, Respiratory Distress - GI/Abdominal Exam GI & Abdominal Exam: Soft, Normal Bowel Sounds. absent: Bruit, Distended, Firm, Guarding, Rigid, Tenderness, Hernia, Mass, Organomegaly, Pulsatile Mass, Rebound Assessment and Plan - Assessment and Plan (Free Text) Assessment: #Symptomatic anemia #Iron deficiency anemia #Hx of diverticulosis with presumed diverticular bleed 2014 #CAD/PAD w/ stents #Chronic back pain on opiate/tylenol #HTN Plan: PRELIM NOTE; RECS NOT FINAL UNTIL SIGNED AND STAFFED -No signs of active bleeding -s/p 3 units PRBCs with appropriate response -EGD 03/24 with gatristis and possible gross signs of celiac, biopsies pending -UA w/o signs of blood -PPI PO daily Pt discussed with Dr. Roman; see attestation for further recs/changes
[2018-03-25] MEDS: Pantoprazole 40 mg EC Tab PO SCH (09:44)
[2018-03-25 10:46] VITALS: BP 154/60
--- NOTE | 2018-03-25 18:55 | CARD ---
APPROVED REPORT Date of service: 03/25/2018 EXAM: Two-dimensional and M-mode echocardiogram with Doppler and color Doppler. 2D DIMENSIONS Left Atrium (2D)4.9 (1.6-4.0cm)IVSd1.4 (0.7-1.1cm) LVDd4.6 (3.9-5.9cm)PWd1.3 (0.7-1.1cm) LVDs3.1 (2.5-4.0cm)FS (%) 32.0 % LVEF (%)60.1 (>50%) M-Mode DIMENSIONS Aortic Root3.70 (2.2-3.7cm)Aortic Cusp Exc.1.60 (1.5-2.0cm) Aortic Valve AoV Peak C[place]ik543.0cm/sAoV VTI46.5cmAO Peak GR.23mmHg LVOT Peak Ietrjbkb803.0cm/sLVOT VTI29.10cmAO Mean GR.10mmHg Mitral Valve MV E Swwvjgps47.2cm/sMV A Tauvutrq41.9cm/sE/A ratio0.8 TDI Lateral E' Peak V6.63cm/sMedial E' Peak V6.57cm/sE/Lateral E'9.8 E/Medial E'9.9 Pulmonary Valve PV Peak Rpqrihsw703.0cm/sPV Peak Grad.4mmHg Tricuspid Valve TR Peak Gfvzhwtn777fu/sRAP [id number] Peak Gr.26mmHg [id number] LEFT VENTRICLE The left ventricle is normal size. There is mild concentric left ventricular hypertrophy. Proximal septal thickening is noted. The left ventricular function is normal.EF-65% There is normal LV segmental wall motion. Transmitral Doppler flow pattern is Grade III-reversible restrictive diastolic dysfunction. No left ventricle thrombus noted on this study. There is no ventricular septal defect visualized. There is no left ventricular aneurysm. There is no mass noted in the left ventricle. RIGHT VENTRICLE The right ventricle is normal size. There is normal right ventricular wall thickness. The right ventricular systolic function is normal. ATRIA The left atrium is mildly dilated. The right atrium size is normal. The interatrial septum is intact with no evidence for an atrial septal defect. AORTIC VALVE The aortic valve is thickened but opens well. The aortic valve is moderately sclerotic. There is trace aortic regurgitation. Aortic sclerosis Vs Aortic stenosis. There is no aortic valvular vegetation. MITRAL VALVE The mitral valve is thickened but opens well. Mitral regurgitation is trace. There is no mitral valve stenosis. There is no evidence of mitral valve prolapse. TRICUSPID VALVE The tricuspid valve leaflets are thickened , but open well. There is trace to mild tricuspid regurgitation.RVSP-36 mmof hg. There is no tricuspid valve stenosis. There is no tricuspid valve prolapse or vegetation. PULMONIC VALVE The pulmonic valve is not well visualized. There is no pulmonic valvular regurgitation. There is no pulmonic valvular stenosis. GREAT VESSELS The aortic root is normal in size. The ascending aorta is normal in size. The pulmonary artery is normal. The IVC is normal in size and collapses >50% with inspiration. PERICARDIAL EFFUSION There is no pleural effusion. There is no pericardial effusion. <Conclusion> The left ventricle is normal size. The left ventricular function is normal.EF-65% Aortic sclerosis Vs Aortic stenosis. There is trace aortic regurgitation. Mitral regurgitation is trace. There is trace to mild tricuspid regurgitation.RVSP-36 mmof hg. The IVC is normal in size and collapses >50% with inspiration. There is no pericardial effusion. NOTE: Problem in [employer] [facility] unable to retreive whole Echo/ Scan: Only few frames are available to view
--- NOTE | 2018-03-25 19:49 | PN ---
DATE: 03/25/2018 REASON FOR CONSULTATION AND FOLLOWUP: Cardiac evaluation, history of coronary artery disease with stent, admitted with severe anemia and GI bleed. SUBJECTIVE: The patient's repeat hemoglobin today is 8.7. A total of 3 units of packed RBCs done. Baseline creatinine is 1.6, today's creatinine is 1.7. Denies chest pain, shortness of breath or any palpitation. The patient is seen and evaluated by our nurse practitioner, Ana Puri. RECOMMENDATIONS: Continue to monitor H and H. Continue baby aspirin. The patient is off Effient more than a year ago. HISTORY OF ALLERGY TO PLAVIX Effient is off. Last GI bleeding was in 12/2014 when the patient's hemoglobin was 8. Monitor closely. CVS status is stable. No evidence of acute CT. We will follow with you. Thank you, Dr. Young, for providing us the opportunity in taking care of the patient, Gilmar Deninson. Clark Goodwin MD [facility]
== END 2018-03-25 11:57 | disposition home or self-care (01) | DRG 812 ==
LOC: ED 11:48 → ERH 14:00 → 2RSO 16:15
PROVIDERS: ADMIT Internal Medicine; ATTEND Internal Medicine
PROC: 30233N1 Transfusion of Nonautologous Red Blood Cells into Peripheral Vein, Percutaneous Approach (ICD-10-PCS; principal; 2018-03-23)
PROC: 0DB98ZX Excision of Duodenum, Via Natural or Artificial Opening Endoscopic, Diagnostic (ICD-10-PCS; 2018-03-24)
PROC: 0DB68ZX Excision of Stomach, Via Natural or Artificial Opening Endoscopic, Diagnostic (ICD-10-PCS; 2018-03-24)
PROC: 0DB58ZX Excision of Esophagus, Via Natural or Artificial Opening Endoscopic, Diagnostic (ICD-10-PCS; 2018-03-24)
DX: D50.9 Iron deficiency anemia, unspecified (principal); B37.81 Candidal esophagitis; I25.10 Atherosclerotic heart disease of native coronary artery without angina pectoris; I10 Essential (primary) hypertension; J44.9 Chronic obstructive pulmonary disease, unspecified; E78.00 Pure hypercholesterolemia, unspecified; G89.29 Other chronic pain; M54.16 Radiculopathy, lumbar region; I73.9 Peripheral vascular disease, unspecified; K29.70 Gastritis, unspecified, without bleeding; K29.80 Duodenitis without bleeding; M48.00 Spinal stenosis, site unspecified; M10.9 Gout, unspecified; F17.210 Nicotine dependence, cigarettes, uncomplicated; Z95.5 Presence of coronary angioplasty implant and graft; Z86.73 Personal history of transient ischemic attack (TIA), and cerebral infarction without residual deficits; Z95.0 Presence of cardiac pacemaker; Z79.891 Long term (current) use of opiate analgesic